=== PATIENT | male | born 1990 | race Caucasian/White ===

== ENCOUNTER 2019-11-22 16:19 | Emergency (ER) | payer OTHER ==
[2019-11-22] MEDS ORDERED: Bupivacaine 0.25% 30 ML SDV INJECT PRN (16:29)
--- NOTE | 2019-11-22 16:49 | EDM.PDOC ---
ED HPI GENERAL MEDICAL PROBLEM - General Chief Complaint: Skin Complaint Stated Complaint: FISH HOOK IN THUMB Time Seen by Provider: 11/22/19 16:30 Source of Information: Reports: Patient History Limitations: Reports: No Limitations - History of Present Illness INITIAL COMMENTS - FREE TEXT/NARRATIVE: Self hooked himself with a bait while pike fishing approximately 45 minutes ago to the right thumb Has no other complaints at this time tetanus is currently up-to-date he has no medical comorbidities Duration: Hour(s): Severity: Mild (2) Associated Symptoms: Reports: No Other Symptoms - Related Data Allergies Allergy/AdvReac Type Severity Reaction Status Date / Time No Known Allergies Allergy Verified 11/22/19 16:42 Home Meds: Home Meds . [No Known Home Meds] 11/22/19 [History] Past Medical History - Past Health History Medical/Surgical History: Denies Medical/Surgical History Social & Family History - Tobacco Use Smoking Status *Q: Never Smoker ED ROS GENERAL - Review of Systems Review Of Systems: See Below Constitutional: Reports: No Symptoms Musculoskeletal: Reports: No Symptoms. Denies: Joint Pain, Joint Swelling, Muscle Pain Skin: Reports: No Symptoms Neurological: Reports: No Symptoms. Denies: Numbness, Tingling Hematologic/Lymphatic: Reports: No Symptoms Immunologic: Reports: No Symptoms ED EXAM, SKIN/RASH Exam: See Below Exam Limited By: No Limitations General Appearance: Alert, WD/WN, No Apparent Distress Respiratory/Chest: No Respiratory Distress Neurological: Alert, Oriented, CN II-XII Intact, Normal Cognition, Normal Gait, No Motor/Sensory Deficits Skin: Warm, Dry, Intact, Normal Color, No Rash (Exam to the right hand there is an intact fishhook to the lateral aspects of the nail there is no active bleeding patient has full range of motion equal sensation positive cap refill normal flexion extension abduction opposition with the thumb) Course - Vital Signs Text/Narrative:: Half cc of lidocaine no epinephrine was injected at the PIP joint for digital block the fishhook was removed patient tolerated procedure well no complications it was cleaned with warm soapy water and alcohol bandage was placed on top patient was given instructions for follow-up and signs and symptoms of infection with a verbal understanding full range of motion with the thumb was checked and normal Last Recorded V/S: Last Vital Signs Temp 37.2 C 11/22/19 16:23 Pulse 63 11/22/19 16:23 Resp 16 11/22/19 16:23 BP 126/76 11/22/19 16:23 Pulse Ox 98 11/22/19 16:23 - Orders/Labs/Meds Meds: Medications Discontinued Medications Generic Name Dose Route Start Last Admin Trade Name Freq PRN Reason Stop Dose Admin Bupivacaine HCl 30 ml 11/22/19 16:29 Marcaine 0.25% INJECT ASDIRECTED PRN Other Lidocaine HCl 5 ml 11/22/19 16:29 11/22/19 16:34 Xylocaine-Mpf 1% INJECT 11/22/19 16:30 5 ml ONETIME ONE Administration Departure - Departure Time of Disposition: 16:45 Disposition: Home, Self-Care 01 Condition: Good Clinical Impression: Fish hook injury of hand - Discharge Information *PRESCRIPTION DRUG MONITORING PROGRAM REVIEWED*: No *COPY OF PRESCRIPTION DRUG MONITORING REPORT IN PATIENT RICHARD: No Forms: ED Department Discharge Additional Instructions: Your diagnosis was fishhook injury Keep the area clean with warm hot soapy water follow-up with your primary care provider or go to the emergency room if anything changes or gets worse such as redness swelling fever discharge decreased range of motion or pain with movement to the area occurs in the next 5 days Sepsis Event Note - Evaluation Sepsis Screening Result: No Definite Risk - Focused Exam Vital Signs: Vital Signs Temp Pulse Resp BP Pulse Ox 11/22/19 16:23 37.2 C 63 16 126/76 98 Date Exam was Performed: 11/22/19 Time Exam was Performed: 16:56 - Problem List & Annotations (1) Fish hook injury of hand SNOMED Code(s): 412063383 Code(s): S69.90XA - UNSP INJURY OF UNSP WRIST, HAND AND FINGER(S), INIT ENCNTR Status: Acute
== END 2019-11-22 16:53 | disposition home or self-care (01) ==
LOC: VM.ED 16:19
DX: S60.351A Superficial foreign body of right thumb, initial encounter (principal); W45.8XXA Other foreign body or object entering through skin, initial encounter
CPT/HCPCS: 64450; 99282; J2001